=== PATIENT | male | born 1960 | race Caucasian/White ===

== ENCOUNTER 2018-05-05 09:47 | Inpatient (IN) ==
--- NOTE | 2018-04-09 15:20 | PAT Medication Instructions ---
Medication Instructions Date of Service April 09, 2018 Home Medications atorvastatin 40 mg PO PM famotidine 20 mg PO UD PRN ibuprofen 400 mg PO UD PRN levothyroxine 75 mcg PO QAM meloxicam 15 mg PO UD PRN ASK your surgeon for instructions ibuprofen 400 mg PO UD PRN meloxicam 15 mg PO UD PRN Take morning of surgery With a small sip of water, OTHERWISE NOTHING TO EAT OR DRINK AFTER MIDNIGHT: famotidine 20 mg PO UD PRN (if needed) levothyroxine 75 mcg PO QAM Take evening before surgery atorvastatin 40 mg PO PM famotidine 20 mg PO UD PRN (if needed) Other Notes If you have any questions please call us at [phone] or [phone] or [phone] or [phone]
--- NOTE | 2018-04-10 14:46 | Anesthesiology Consultation ---
Date of Service April 10, 2018 Assessment & Plan (1) Encounter for pre-operative examination: Chart Review Chart Review: Acceptable Risk for Surgery and Patient seen in Pre Admission Testing Teaching & Discussion Instructed NPO after midnight before surgery, except medications with 15 cc of water. Medication instructions provided according to the PAT guidelines. ASA ASA2 Proposed Anesthesia Anesthesia Type: MAC Spinal Regional Regional Laterality: Left Site: Adductor Canal Risk / Benefits Reviewed With: PT / POA / Parent / Guardian, Accepts Plan and Informed Consent Obtained NPO Date Last Intake of Fluids: 05/04/18 Time Last Intake of Fluids: 19:00 Date Last Intake of Solids: 05/04/18 Time Last Intake of Solids: 19:00 History Surgery Operation Date: 05/05/18 12:30 Proposed Procedures p Left Total Knee Arthroplasty - Jose A Hernandez MD Height/Weight Height: 5 ft 10 in Weight: 108.6 kg Allergies Allergy/AdvReac Type Severity Reaction Status Date / Time No Known Allergies Allergy Verified 05/05/18 10:11 Medications Home Medications Medication Instructions Recorded Confirmed Last Taken atorvastatin 40 mg PO PM 04/08/18 05/05/18 05/04/18 20:00 famotidine 20 mg PO UD PRN 04/08/18 05/05/18 05/04/18 20:00 ibuprofen 400 mg PO UD PRN 04/08/18 05/05/18 Unknown levothyroxine 75 mcg PO QAM 04/08/18 05/05/18 05/05/18 06:30 meloxicam 15 mg PO UD PRN 04/08/18 05/05/18 Unknown Past Medical History Medical History Acid reflux Hyperlipidemia Obesity Osteoarthritis Thyroid disease Past Family History Family History Mother Family history of colon cancer Father Family history of stomach cancer Family history of esophageal cancer Past Surgical History Surgical History History of colonoscopy History of tonsillectomy History of total right knee replacement Past Anesthesia History No Hx of Anesthesia Complications and No Family Hx of Anesthesia Complications History of PONV No Motion Sickness Screening History of Motion Sickness: No Social History Smoking Status: Former smoker (quit x 4 years) Do You Dip or Chew Tobacco: No (h/o, quit) Smoking End Date: QUIT 4 YR AGO Hx Alcohol Use: Yes Alcohol type: beer and hard liquor alcohol intake frequency: a few times a week Hx Substance Use: No substance use type: does not use Exercise / Class Metabolic Activity II 4-5 Yardwork/Stairs/Walk up hill (denies CP or SOB with stairs, does 20x per day at work) Review of Systems Pt denies any recent chest pain, shortness of breath, palpitations, cough, fever or URI. +recovering from common cold/congestion currently. Physical Exam Vital Signs Last Vital Signs Temp 36.4 C L 05/05/18 10:08 Pulse 78 05/05/18 10:08 Resp 20 05/05/18 10:08 BP 148/89 H 05/05/18 10:08 Pulse Ox 95 05/05/18 10:08 BP: 127/88 P: 64bpm SPO2: 95% RA T: 97.6 F R: 16 ENMT Mouth: no dental restorations, no chipped teeth and no loose teeth Thyromental Distance: > or= 3.5 Finger Breadths (3) Mallampati Class: II Neck normal visual inspection and trachea midline; neck extension not limited Respiratory normal respiratory effort Auscultation: lungs clear to auscultation bilaterally Cardiovascular Rate/Rhythm: regular rate and regular rhythm Heart Sounds: no murmur Vessels: no carotid bruit Musculoskeletal Spine: normal cervical ROM Neurologic moves all extremities Motor/Sensory: no sensory deficit Psychiatric Orientation: alert and oriented x 3 Testing Electrocardiogram Date: 04/10/18 Findings: + NSR @ (63) Chest X-Ray Date: 04/10/18 Findings: + NAD Laboratory Results 04/10/18 15:00 04/10/18 15:00 Blood Type B Positive 04/10/18 15:00 Antibody Screen NEGATIVE 04/10/18 15:00
--- NOTE | 2018-04-10 15:36 | XRay Report ---
XR chest Pre-admission PA/Lat CLINICAL HISTORY: Preoperative chest COMPARISON STUDY: No previous studies for comparison. FINDINGS: The cardiac and mediastinal contours are normal. There is no evidence of focal pulmonary co nsolidation. There is no evidence of failure. No pleural effusions are visualized.[ IMPRESSION: No active disease in the chest. Electronically signed by: Ron Boss M.D. 04/10/2018 3:35 PM
[2018-04-10 15:45] LABS: Basophils # (auto) 0.05 K/uL (0-0.2); Basophils % (auto) 0.6 %; Eosinophils # (auto) 0.21 K/uL (0-0.5); Eosinophils % (auto) 2.3 %; Hematocrit (blood only) 46.6 % (42-52); Immature Granulocytes # (auto) 0.02 K/uL (0.00-0.02); Immature Granulocytes % (auto) 0.2 %; Lymphocytes # (auto) 2.85 K/uL (1.2-3.4); Lymphocytes % (auto) 31.5 %; Mean Corpuscular Hgb Conc 34.3 g/dL (32-36); Mean Corpuscular Volume 86.5 fL (80-100); Mean Platelet Volume 9.9 fL (7.4-10.4); Monocytes # (auto) 0.87 K/uL (0.11-0.59); Monocytes % (auto) 9.6 %; Neutrophils # (auto) 5.05 K/uL (1.4-6.5); Neutrophils % (auto) 55.8 %; Platelet Count 261 K/uL (130-400); RDW Coefficient of Variation 13.4 % (11.5-14.5); RDW Standard Deviation 42.2 fL (36.4-46.3); Red Blood Count 5.39 M/uL (4.7-6.1); White Blood Count 9.05 K/uL (4.8-10.8)
[2018-04-10 15:58] LABS: BUN Creatinine Ratio 20.8 (10-20); Blood Urea Nitrogen 17 mg/dl (7-18); C Reactive Protein < 0.29 mg/dl (0-0.29); Calcium 10.6 mg/dl (8.5-10.1); Carbon Dioxide 28 mmol/L (21-32); Chloride 107 mmol/L (98-107); Creatinine Clr Calc Pharmacy 119.7 ml/min; Est GFR (Non-African American) 96.6; Glucose 98 mg/dl (70-99); Potassium 3.9 mmol/L (3.5-5.1); Sodium 140 mmol/L (136-145)
--- NOTE | 2018-05-01 09:58 | History and Physical Report ---
DATE OF ADMISSION: 05/05/2018 CHIEF COMPLAINT: Left knee pain. HISTORY OF PRESENT ILLNESS: The patient is a 58-year-old gentleman from [place] who presents for surgical treatment of his left knee. He has got a fairly long history of knee problems and had his right knee replacement by Dr. Comer done in [place] about 3 years ago. He has done okay, but still has some pain. He continues to be limited by left knee pain now. He describes global discomfort in his knee. He has had multiple injections, which provided a couple weeks of relief and that is about it. Pain has become more debilitating. It is a bit more on the medial side, but some global pain. The more he walks, the more it hurts. He has a limited walking tolerance. He has difficulty going up and down stairs. He has nighttime pain. He would like to proceed with left knee replacement. PAST MEDICAL HISTORY: 1. Hypothyroidism. 2. Elevated cholesterol. 3. Gastroesophageal reflux disease. 4. Mild obesity with a BMI of 35. 5. Back pain. PAST SURGICAL HISTORY: Include: 1. Right knee replacement 3 years ago in [place] [address] Dr[address] Comer. 2. Eyelid reattachment for an accident. ALLERGIES: None. CURRENT MEDICINES: 1. Meloxicam 15 mg a day. 2. Levothyroxine 75 mcg a day. 3. Atorvastatin 40 mg a day. 4. Occasional ibuprofen 400 mg p.r.n. 5. Famotidine 10 mg a day. SOCIAL HISTORY: A 58-year-old male patient from [place]. 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 He is . He drinks 2 drinks per week. He does not smoke. FAMILY HISTORY: Significant for heart disease and diabetes, colon cancer and esophageal cancer. REVIEW OF SYSTEMS: Negative for diabetes, neurologic problems, vascular problems, or bleeding disorders. No chest pain or shortness of breath. No history of DVT or PE. No known bleeding disorders. PHYSICAL EXAMINATION: GENERAL: Reveals a healthy, pleasant 58-year-old male. Looks to be in pretty good health. HEENT: Benign. NECK: Supple. No lymphadenopathy. LUNGS: Clear to auscultation. HEART: Regular rate and rhythm. ABDOMEN: Soft, nontender, nondistended. EXTREMITIES: Grossly neurovascularly intact except as follows: Examination of both knees reveals the patient walks independently. Examination of the left knee reveals slight varus alignment to his knee. With weightbearing, he does have a bit of a varus thrust. He has got bony hypertrophy medially. He is tender over the medial joint line. Range of motion is 5-120. There is no instability. He does seem to have a fairly large popliteal cyst posteriorly. Examination of the right knee reveals a well-healed incision. No redness or warmth. Range of motion 0-120. Good straight leg raise. X-RAYS: X-rays of the left knee reviewed, show advanced left knee DJD. He has got complete loss of his medial joint space because of subchondral sclerosis. He has got osteophytes off the medial femoral condyle and medial tibial plateau. X-rays of the right knee reveal posterior cruciate retaining uncemented knee replacement. The patella was then resurfaced. No obvious signs of loosening or problems. ASSESSMENT: A 58-year-old gentleman 3 years out from a right uncemented knee replacement with persistent left knee pain and discomfort, unresponsive to conservative treatment. He now would like to proceed with surgery. PLAN: We will take him to the operating room and do a left total knee replacement. The risks and benefits of this procedure were explained to the patient including but not limited to DVT, PE, , infection, neurological injury, vascular injury, bleeding problem, pain, limited range of motion, stiffness, failure to relieve his symptoms, incomplete relief of symptoms, need for further surgery in the future, fracture, leg length inequality, nerve palsy, etc. The patient understands and desires to proceed. Informed consent was obtained. I did tell him we will use a little bit different technique than what Dr. Comer did, but there is no guarantee that he will be completely free or any better than his other knee. He has held his Mobic 10 days preop and any ibuprofen as well. He is planning to be discharged to home likely with some home health once recovered.
[~2018-05-05 09:47] MED LIST: ACETAMINOPHEN 500 MG TAB PO SCH; BUPIVACAINE 0.5 % 5 MG/1 ML PF 10ML VIAL ONE; BUPIVACAINE LIPOSOME/PF 266 MG, BUPIVACAINE/EPINEPHRINE 50 ML, SODIUM CHLORIDE 0.9% 30 ... INFIL SCH; CEFAZOLIN 2000MG 2,000 MG/15 ML SYR IV SCH; EPINEPHrine INJ 1 MG/ML AMP ONE; FAMOTIDINE 20 MG TAB PO SCH; GABAPENTIN 300 MG x 2 PO SCH; LR 500ML BOLUS, THEN 15ML/HR IV SCH; LR 60ML/HR IV SCH; METOCLOPRAMIDE HCL 10 MG TABLET PO SCH; ROPIVACAINE 0.5% 5 MG/ML 30 ML VIAL ONE; SCOPOLAMINE 1.5 MG TDSY TD SCH; TRANEXAMIC ACID 1,000 MG **IV Intra-op IV SCH
[2018-05-05] MEDS ORDERED: MIDAZOLAM HCL 1 MG/ML 2ML VIAL ONE (10:36)
[2018-05-05] MEDS ORDERED: fentaNYL citrate 100 MCG/2 ML VIAL ONE (10:36)
--- NOTE | 2018-05-05 10:46 | History & Physical Bridge Note ---
Date of Service May 05, 2018 History & Physical Bridge Note I have examined the patient, reviewed the History & Physical and in the interval since the performance of the History & Physical I have noted the following changes of clinical significance: no changes noted
[2018-05-05] MEDS ORDERED: BUPIVACAINE LIPOSOME 1.3% 266 MG/20 ML VIAL ONE (11:16)
[2018-05-05] MEDS ORDERED: SODIUM CHLORIDE 0.9% PF 50 ML VIAL ONE (11:16)
[2018-05-05] MEDS ORDERED: BACITRACIN INJ 50,000 UNIT VIAL ONE (11:16)
[2018-05-05] MEDS ORDERED: EPINEPHrine INJ 1 MG/ML AMP ONE (11:17)
[2018-05-05] MEDS ORDERED: BUPIVACAINE 0.25% 30 ML VIAL ONE (11:17)
[2018-05-05] MEDS ORDERED: ePHEDrine sulfate 50 MG/ML SYR ONE (13:33)
[2018-05-05] MEDS ORDERED: PROPOFOL IV EMULSION 10 MG/ML 20 ML VIAL IV ONE ×2 (13:33)
--- NOTE | 2018-05-05 14:24 | Post Operative Brief Note ---
Immediate Post Op Note v1 Date of Surgery May 05, 2018 Pre & Post Diagnosis Operation Date: 05/05/18 12:30 Pre-Op Diagnosis: Left Knee Advanced Degenerative Joint Disease Post-Op Diagnosis: Left Knee Advanced Degenerative Joint Disease Procedure Operation Date: 05/05/18 12:30 Actual Procedures p Left Total Knee Arthroplasty(Left) - Jose A Hernandez MD Surgeon Jose A Hernandez MD Manager Transition Loren, PAC Estimated Blood Loss 50 Findings Consistent with Post-Op Diagnosis Fluids 2000 cc Specimens Left Knee Drains Seth Catheter (A 16 Cymraes seth catheter was inserted by Dena Doe RN, without difficulty, clear yellow urine obtained, output to be monitored by Anesthesia.) Anesthesia Type Spinal MAC Complications none Disposition Accompanied Patient To Recovery: No Disposition: Recovery Room
--- NOTE | 2018-05-05 14:54 | XRay Report ---
XR knee LT 2V routine CLINICAL HISTORY: Surgical Post Op COMPARISON: None. DISCUSSION: Anatomic alignment post left knee total arthroplasty. Good contact between prosthetic and underlying bone. Expected surgical postoperative change. IMPRESSION: Anatomic alignment post total left knee arthroplasty. The above report was generated using voice recognition software. It may contain grammatical, syntax or spelling errors. Electronically signed by: Michael Maher M.D. 05/05/2018 2:53 PM
[2018-05-05] MEDS ORDERED: ATROPINE SULFATE 0.1 MG/ML 10ML SYR IV PRN (15:46)
[2018-05-05] MEDS ORDERED: ePHEDrine sulfate 50 MG/ML AMP IV PRN (15:46)
--- NOTE | 2018-05-05 15:47 | Anesthesiology Progress Note ---
Date of Service May 05, 2018 Anesthesia Post Procedure Vital Signs Vital Signs: Temp Pulse Pulse Resp BP Pulse Ox 05/05/18 15:43 68 16 115/72 95 05/05/18 15:30 77 15 111/71 95 05/05/18 15:20 76 16 116/72 95 05/05/18 15:10 36.3 C L 69 18 117/75 94 05/05/18 15:00 87 16 118/72 96 05/05/18 14:50 85 19 104/67 95 05/05/18 14:40 97 H 19 104/60 97 05/05/18 14:30 36.1 C L 91 H 16 102/62 96 05/05/18 10:08 36.4 C L 78 20 148/89 H 95 Notes Mental Status: alert / awake / arousable Patient Amnestic to Procedure: Yes Nausea / Vomiting: adequately controlled Pain: adequately controlled Airway Patency, RR, SpO2: stable & adequate BP & HR: stable & adequate Neuraxial Anesthesia: was administered and sensory block is resolving Anesthetic Complications: no major complications apparent Notes: Pt doing well, VSS.
[2018-05-05] MEDS ORDERED: MAGNESIUM HYDROXIDE SUSP 30 ML UDC PO PRN (16:01)
[2018-05-05] MEDS ORDERED: METOCLOPRAMIDE HCL INJ 5 MG/ML 2 ML VIAL IV PRN (16:01)
[2018-05-05] MEDS ORDERED: TAMSULOSIN HCL 0.4 MG CAP PO PRN (16:01)
[2018-05-05] MEDS ORDERED: BISACODYL 10 MG SUPP PR PRN (16:01)
[2018-05-05] MEDS ORDERED: NALOXONE HCL 0.4 MG/1 ML VIAL/CARP IV PRN (16:01)
[2018-05-05] MEDS ORDERED: OXYCODONE HCL IR 5 MG TAB (IMMEDIATE RELEASE) PO PRN (16:01)
[2018-05-05] MEDS ORDERED: HYDROmorphone INJ 0.5 MG/0.5 ML SYR IV PRN (16:01)
[2018-05-05] MEDS ORDERED: ONDANSETRON INJ 2 MG/ML 2 ML VIAL IV PRN (16:01)
[2018-05-05] MEDS ORDERED: FAMOTIDINE 20 MG TAB PO PRN (16:01)
[2018-05-05] MEDS: SODIUM CHLORIDE 0.9% 1000ML 1,000 ML IV SCH ×2 (16:43→23:43)
[2018-05-05] MEDS: CHECK SCOPOLAMINE PATCH PLACEMENT SCH ×2 (16:43→23:43)
[2018-05-05] MEDS: KETOROLAC 30 MG/ML VIAL IV SCH ×2 (17:31→23:44)
[2018-05-05] MEDS: ASCORBIC ACID 500 MG TAB PO SCH (17:32)
[2018-05-05] MEDS: FERROUS GLUCONATE 324 MG TAB PO SCH (17:32)
[2018-05-05] MEDS: ASPIRIN 81 MG ECTAB PO SCH (20:15)
[2018-05-05] MEDS: TAPENTADOL HCL ER 50 MG TABCR PO SCH (20:19)
[2018-05-05] MEDS: CEFAZOLIN 2000MG 2,000 MG/15 ML SYR IV SCH (20:22)
[2018-05-05] MEDS: DOCUSATE SODIUM 100 MG CAP PO SCH (20:25)
[2018-05-05] MEDS ORDERED: TRANEXAMIC ACID 1,000 MG in 0.9 % SODIUM CHLORIDE 100 ML IV SCH (20:30)
[2018-05-05] MEDS ORDERED: ATORVASTATIN 40 MG TAB PO SCH (21:00)
[2018-05-05] MEDS ORDERED: SENNA 8.6 MG TAB PO SCH (21:00)
--- NOTE | 2018-05-05 22:33 | Operative Report ---
DATE OF OPERATION: 05/05/2018 SURGEON: Jose A Hernandez MD PROOF MACHINE OPERATOR SUPERVISOR: MATTY Rinaldi PREOPERATIVE DIAGNOSIS: Left knee degenerative joint disease. POSTOPERATIVE DIAGNOSIS: Same. PROCEDURE PERFORMED: Left cemented posterior stabilized total knee arthroplasty. COMPLICATIONS: None. ESTIMATED BLOOD LOSS: 50 mL. FLUID REPLACEMENT: 2000 mL crystalloid fluid replacement. TOURNIQUET TIME: 58 minutes at 300 mmHg. ANESTHESIA: Spinal with adductor canal block. DRAINS: None. SPECIMENS: Left knee sent for pathology. OPERATIVE INDICATIONS: The patient is a 58-year-old gentleman who has had a long history of bilateral knee pain and discomfort. He has been through extensive conservative treatment in the past. He had his right knee replaced 3 years ago done elsewhere and it has done okay, but not great. He has continued to be limited by left knee pain. He has been trying to put this off, but pain has become more debilitating and limiting. He would like to proceed with left total knee arthroplasty. OPERATIVE FINDINGS: Operative findings revealed advanced left knee DJD. He had extensive grade 4 changes in the medial and patellofemoral compartments with eburnation of the bone and osteophytes. He had a fixed varus deformity to his knee with a large knee joint effusion. OPERATIVE IMPLANTS: Operative implants consisted of: 1. Biomet Vanguard size 70 left posterior stabilized femoral component. 2. Biomet size 75 tibial tray. 3. A 12 mm posterior stabilized polyethylene insert. 4. A 31 x 8 all poly patella. OPERATIVE PROCEDURE: The patient was taken to the operating room, identified and placed on the operating table in supine position. All contact areas were appropriately padded. IV antibiotics were provided by anesthesia team. A spinal anesthetic and adductor canal block had been provided in the holding area. Odom catheter was placed in sterile fashion. Left thigh tourniquet was then placed and left lower extremity was then prepped and draped in the usual sterile fashion. The left leg was elevated and exsanguinated with Esmarch and tourniquet was placed at 300 mmHg. An anterior approach to the left knee was then performed through a longitudinal incision centered over the patella. Sharp dissection was carried out through the subcutaneous tissue down to the level of the extensor mechanism. A medial parapatellar arthrotomy incision was made. Some subperiosteal dissection was carried out medially. The fat pad was resected from beneath the patellar tendon. The lateral patellofemoral ligament was released. The patella was everted and the knee was flexed. The osteophytes were taken off the distal femur. The ACL and PCL were then released from the distal femur and the tibia subluxated anteriorly. The external tibial alignment jig was then placed in the anterior face of the tibia and adjusted 16 mm medially. Proximal tibial cut was then made to remove about a millimeter of bone from the most deficient aspect of the medial tibial plateau. Some osteophytes were taken off medial and posteromedially. Tibia sized to a size 75. Attention was then drawn to the femur. The distal femur was entered with a sharp drill bit. The intramedullary canal was suctioned. A left 6-degree valgus cutting guide was placed. Distal femoral cutting block was pinned in place. Distal femoral cut was made to take an additional 3 mm of bone off the distal femur. The femur was then sized to a size 70. We did downsize this slightly. The AP cutting block was pinned parallel to the epicondylar axis, which was 5 degrees of external rotation. The anterior cut, anterior chamfer, posterior cut, posterior chamfer cuts were made. Box cutting guide was placed and adjusted slightly lateral and the box cut was made. The knee was flexed. The remnants of the medial and lateral menisci were excised. The osteophytes were taken off the posterior aspect of the femur. A trial femoral component was placed. The tibial tray was pinned in maximum external rotation and drill and stem punch were used to create a defect in the proximal tibia for the tibial tray. The knee was then trialed and a 12 mm insert fit most appropriately. Attention was then drawn to the patella. The patella was cleaned of all soft tissues. Patella thickness measured 23 mm in thickness and was cut down to 14. It was sized to a size 31 patella. Lug holes were drilled for a 31 patella. Lateral osteophyte was removed. Patellar button was placed. Knee was taken through range of motion and patella tracked nicely with no thumbs test. Attention was then drawn toward placement of permanent components. All trial components were removed. A bone plug was placed in the distal femur to limit blood loss. A double batch of Palacos G cement was mixed. A Biomet Vanguard size 70 left posterior stabilized femoral component, size 75 tibial tray, a 12 mm posterior stabilized polyethylene insert, and a 31 x 8 all poly patella were then cemented in place. Knee was brought into full extension until cement hardened. A final cement check was then performed. Pericapsular tissues were injected with a total of 100 mL of combination of 20 mL Exparel, 30 mL of normal saline, 50 mL of 0.25% Marcaine with epinephrine. The patient did receive 1 gram of tranexamic acid. The tourniquet was then let down for a final tourniquet time of 58 minutes. Hemostasis was assured with use of electrocautery. Extensor mechanism was then closed with a combination of #1 PDS suture and #1 Vicryl suture in a [id number] fashion. The extensor mechanism was checked and found to be intact. The subcutaneous tissue then closed with #2 Dexon suture in a buried interrupted fashion. Skin was closed with skin george. Leg was then cleaned and dried and a sterile dressing of Xeroform, 4 x 4s, sterile cast padding, and Boby bandage were applied. The patient was then transferred to the recovery room in stable condition. The patient tolerated the procedure well with no complications. All needle and sponge counts were correct at the end of the operation. I attest to the content of the Intraoperative Record and any orders documented therein. Any exception s are noted below.
[2018-05-06] MEDS: CEFAZOLIN 2000MG 2,000 MG/15 ML SYR IV SCH (05:20)
[2018-05-06] MEDS: KETOROLAC 30 MG/ML VIAL IV SCH ×3 (05:55→17:35)
[2018-05-06 06:08] LABS: Hematocrit (blood only) 42.3 % (42-52); Hemoglobin 14.2 g/dL (14.0-18.0); Mean Corpuscular Hgb Conc 33.6 g/dL (32-36); Mean Platelet Volume 9.1 fL (7.4-10.4); Platelet Count 190 K/uL (130-400); RDW Coefficient of Variation 13.3 % (11.5-14.5); RDW Standard Deviation 42.4 fL (36.4-46.3); Red Blood Count 4.86 M/uL (4.7-6.1); White Blood Count 10.34 K/uL (4.8-10.8)
[2018-05-06] MEDS ORDERED: LEVOTHYROXINE SODIUM 75 MCG TABLET PO SCH (06:30)
[2018-05-06] MEDS ORDERED: Nursing to Pharmacy Communication ONE (06:41)
[2018-05-06 06:47] LABS: BUN Creatinine Ratio 12.7 (10-20); Calcium 8.8 mg/dl (8.5-10.1); Creatinine Clr Calc Pharmacy 105.4 ml/min; Est GFR (African American) 104.4; Est GFR (Non-African American) 90.1; Potassium 3.9 mmol/L (3.5-5.1)
--- NOTE | 2018-05-06 07:45 | Anesthesiology Progress Note ---
Date of Service May 06, 2018 Anesthesia Post Procedure Vital Signs Vital Signs: Temp Pulse Pulse Pulse Resp BP Pulse Ox 05/06/18 03:42 37.3 C 85 16 121/81 92 05/05/18 23:55 36.9 C 75 16 143/89 H 98 05/05/18 17:57 17 116/75 96 05/05/18 17:07 36.5 C 61 17 141/86 H 98 05/05/18 16:25 36.5 C 75 16 116/72 98 05/05/18 15:55 36.5 C 81 16 103/68 96 05/05/18 15:43 68 16 115/72 95 05/05/18 15:30 77 15 111/71 95 05/05/18 15:20 76 16 116/72 95 05/05/18 15:10 36.3 C L 69 18 117/75 94 05/05/18 15:00 87 16 118/72 96 05/05/18 14:50 85 19 104/67 95 05/05/18 14:40 97 H 19 104/60 97 05/05/18 14:30 36.1 C L 91 H 16 102/62 96 05/05/18 10:08 36.4 C L 78 20 148/89 H 95 Pain Intensity Left Knee: Pain Intensity: 3 Notes Mental Status: alert / awake / arousable and participated in evaluation Nausea / Vomiting: adequately controlled Pain: adequately controlled Airway Patency, RR, SpO2: stable & adequate BP & HR: stable & adequate Hydration State: stable & adequate Neuraxial Anesthesia: was administered and sensory block resolved Anesthetic Complications: no major complications apparent and Pt Satisfied with anesthetic care
[2018-05-06] MEDS: SODIUM CHLORIDE 0.9% 1000ML 1,000 ML IV SCH (08:05)
[2018-05-06] MEDS: ASPIRIN 81 MG ECTAB PO SCH (08:50)
[2018-05-06] MEDS: TAPENTADOL HCL ER 50 MG TABCR PO SCH (08:50)
[2018-05-06] MEDS: ASCORBIC ACID 500 MG TAB PO SCH ×2 (08:50→17:31)
[2018-05-06] MEDS: FERROUS GLUCONATE 324 MG TAB PO SCH ×2 (08:51→17:31)
[2018-05-06] MEDS: DOCUSATE SODIUM 100 MG CAP PO SCH (08:52)
[2018-05-06] MEDS ORDERED: MULTIVITAMIN TAB PO SCH (09:00)
--- NOTE | 2018-05-06 17:02 | Progress Note ---
DATE: 05/06/2018 SUBJECTIVE: A 58-year-old gentleman postop day 1 from a left knee replacement. He is doing pretty well. Some pain with therapy but manages with his pain medicines. No chest pain or shortness of breath. Not feeling dizzy or lightheaded. OBJECTIVE: VITAL SIGNS: Temperature is 36.6. Vital signs stable. PHYSICAL EXAMINATION: GENERAL: Shows a pleasant, middle-aged male. He is sitting up in bed, looks pretty comfortable. EXTREMITIES: Examination of left leg reveals the dressing to be clean, dry, and intact. He can dorsiflex and plantarflex his foot appropriately. He is neurologically intact. LABORATORY DATA: Hemoglobin 14.2. Hematocrit 42.3. Electrolytes are stable. ASSESSMENT: A 58-year-old gentleman postoperative day 1 from left knee replacement, doing pretty well. Pain is controlled. He is neurologically intact. PLAN: 1. DVT prophylaxis including thigh-high TEDs, SCDs, and aspirin twice a day. 2. PT/OT. Weight bear as tolerated. Left total knee protocol. 3. Pain control. Doing reasonably well with current pain regimen. 4. Disposition: He is hoping to be discharged to home this evening. He is going to do outpatient therapy. We will give him some instructions on wound care.
--- NOTE | 2018-05-07 10:46 | Discharge Summary ---
Date of Service May 12, 2018 Discharge Data Consultations 05/05/18 16:01 Consult Case Management - Discharge Planning Routine Procedures Performed Operation Date: 05/05/18 12:30 Actual Procedures p Left Total Knee Arthroplasty(Left) - Jose A Hernandez MD
--- NOTE | 2018-05-08 11:23 | Discharge Summary ---
ADMITTING PHYSICIAN AND SURGEON: Dr. Jose A Hernandez. ADMITTING DIAGNOSIS: Left knee degenerative joint disease. SURGERY PERFORMED: Left total knee arthroplasty. SECONDARY DIAGNOSES: Hypothyroidism, elevated cholesterol, gastroesophageal reflux disease, mild obesity, back pain. CONSULTS: None obtained. HISTORY AND PHYSICAL EXAMINATION: Well documented in the patient's chart. HOSPITAL COURSE: The patient was admitted on 05/05/2018 and underwent total knee arthroplasty, tolerated the procedure well. There were no complications. He was transferred to the PACU postoperatively and later to the orthopedic for further care. He was given Ancef for antibiotic prophylaxis, SURAJ stockings, SCDs and aspirin for DVT prophylaxis. Hemoglobin, hematocrit and vital signs were monitored during his hospital stay and remained stable, did not require any blood transfusions. There were no complications. By postoperative day 1, he was tolerating a regular diet, pain was controlled with oral pain medicine. He was participating in physical therapy. Postop day 1, he was discharged home. He was given printed discharge instructions including new prescriptions for extra strength Tylenol, aspirin, and oxycodone. Continue his home medication, continue physical therapy, weightbearing as tolerated, SURAJ stockings. Follow in up approximately 2 weeks postoperatively or sooner if there are any problems or concerns.
== END 2018-05-06 19:07 | disposition home or self-care (01) | DRG 470 ==
LOC: ASU 09:47 → 3E 14:28 → UNDODISIN 05-06 17:56